=== PATIENT | male | born 1945 | race Caucasian/White ===

== ENCOUNTER → 2023-05-29 06:32 | Day surgery (SDC) | payer MEDICARE, SELFPAY | LOC: GI 06:32 | PROVIDERS: ATTENDING PHYSICIAN Specialist; FAMILY PHYSICIAN Internal Medicine | DX: Z12.11 Encounter for screening for malignant neoplasm of colon (principal); K31.7 Polyp of stomach and duodenum; K22.89 Other specified disease of esophagus; D12.3 Benign neoplasm of transverse colon; D12.0 Benign neoplasm of cecum; D12.2 Benign neoplasm of ascending colon; Q43.8 Other specified congenital malformations of intestine; Z86.010 Personal history of colon polyps | CPT/HCPCS: 45385; 45380; 43239; 88305 ==